=== PATIENT | male | born 1955 | race Caucasian/White ===

== ENCOUNTER → 2018-04-30 | Outpatient (CLI) | payer OTHER ==
[~2018-04-30] VITALS: Ht 180.3 cm; Wt 117.0 kg
[~2018-04-30] MED LIST: GLUCOTROL10 MG PO; PRILOSEC 20MG20 MG PO; ZESTRIL40 MG PO
[2018-04-30 09:11] VITALS: BP 142/94; PULSE 74
[2018-04-30 10:30] VITALS: BP 120/70; PULSE 91
[2018-04-30 10:45] VITALS: BP 120/81; PULSE 91
[2018-04-30 11:00] VITALS: BP 120/79; PULSE 74
== END ==
LOC: COL.RAD 08:29
DX: M48.03 Spinal stenosis, cervicothoracic region (principal); M50.11 Cervical disc disorder with radiculopathy, high cervical region
CPT/HCPCS: G9654; J2405; J2704; J3010; J7120